=== PATIENT | female | born 1985 | race African-American/Black ===

== ENCOUNTER 2020-12-06 08:10 | Emergency (ER) | payer MEDICAID | END 2020-12-06 08:37 | disposition home or self-care (01) | LOC: MADERS 08:10 | DX: L20.9 Atopic dermatitis, unspecified (principal) | CPT/HCPCS: 99283 ==

== ENCOUNTER 2021-06-09 20:01 | Emergency (ER) | payer MEDICAID | END 2021-06-09 22:45 | disposition left against medical advice (07) | LOC: MADERS 20:01 | DX: Z53.21 Procedure and treatment not carried out due to patient leaving prior to being seen by health care provider (principal) ==